=== PATIENT | female | born 1985 | race Caucasian/White ===

== ENCOUNTER 2023-12-31 19:28 | Inpatient (IN) | payer BC, SELFPAY ==
--- NOTE | 2023-12-31 18:59 | HP.PCM.OB_ITS ---
HPI - General General Date of Admission: 12/31/23 Date of Service: 12/31/23 HPI Narrative GAVI JUNIOR, is a 38 F who presents for induction. Maternal Data Information Final SONG: 01/07/24 Gestational age: 39 weeks [facility] Surgical History (Updated 12/31/23 @ 19:[address] Ganesh Cannon MD) H/O wrist surgery Physical Exam Const alert and oriented x3 Chest inspection of chest normal Resp normal respiratory effort GI soft to palpation, non-tender and non-distended Inspection: gravid external exam normal Narrative: cvx - cl/th/-3, posterior Extremity no calf tenderness Neuro moves all extremities Labs Labs Labs: No Data to Display Assessment & Plan (1) Group beta Strep positive: (2) Gestational diabetes requiring insulin: (3) 39 weeks gestation of : PLAN: Plan Admit to L&D Induction - start cytotec GBS positive - pcn per protcol in active labor GDMA2 - monitor BS per protocol Pain - epidural as desired EFW - less than 4500g, patient with adequate pelvis
[2023-12-31 19:15] VITALS: BP 128/78; PULSE 71; RESP 16; TEMP 36.7
[2023-12-31 19:20] VITALS: BMI 32.8
[2023-12-31 20:07] LABS: Bedside Glucose 63 mg/dL (74-106)
[2023-12-31 20:17] LABS: Absolute Lymphocyte Count 2.22 X10^3/uL (0.83-4.51); Absolute Neutrophil Count 5.1 X10^3/uL (2.0-7.7); Basophil# 0.02 X10^3/uL; Basophil% 0.3 % (0-1); Eosinophil# 0.04 X10^3/uL; Eosinophils% 0.5 % (0-5); Hematocrit 32.9 % (37-47); Hemoglobin 11.2 g/dL (12.0-15.0); Lymphocyte # 2.22 X10^3/ul (0.83-4.51); Lymphocyte % 28.2 % (19-41); Mean Corpuscular Hgb 31.1 pg (27.0-32.0); Mean Corpuscular Volume 91.4 fL (81-99); Mean Platelet Vol. 11.9 fl (6.2-12.0); Monocyte# 0.45 X10^3/uL; Monocyte% 5.7 % (0-10); NRBC Flagged by Analyzer 0 % (0-5); Neutrophil # 5.12 X10^3/uL (2.7-7.7); Neutrophil % 64.9 % (47-70); Platelet Count 148 K/mm3 (150-450); RBC Distribution Width CV 12.1 % (11.6-14.6); RBC Distribution Width SD 40.4 fl (35.1-43.9); White Blood Count 7.9 K/mm3 (4.4-11.0)
[2023-12-31] MEDS: miSOPROStol 25 MCG TABLET VAGINAL (20:27)
[2023-12-31 20:55] VITALS: BP 121/74; PULSE 73; RESP 16; O2SAT 95; O2SAT 97
[2023-12-31 21:07] LABS: Syphilis Antibodies Non-reactive
[2023-12-31 21:23] LABS: Bedside Glucose 119 mg/dL (74-106)
[2023-12-31] MEDS: Lactated Ringers 1,000 ML 100 ML IV (22:04)
[2023-12-31 22:31] LABS: Bedside Glucose 102 mg/dL (74-106)
[2023-12-31 23:24] LABS: Bedside Glucose 80 mg/dL (74-106)
[2023-12-31] MEDS: LACTATED RINGERS 500 ML 999 ML IV (23:56)
[2024-01-01] VITALS (51 sets, daily range): BP systolic 96–126; BP diastolic 54–91; PULSE 56–79; RESP 14–16; TEMP 35.8–36.9; O2SAT 92–100
[2024-01-01] MEDS: LACTATED RINGERS 500 ML 999 ML IV ×3 (01:08→03:10)
[2024-01-01] MEDS: Sodium Citrate/Citric Acid 30 ML UDC PO (04:39)
[2024-01-01] MEDS: Acetaminophen 500 MG Tablet PO (04:39)
[2024-01-01] MEDS: Lactated Ringers 1,000 ML 200 ML IV (04:40)
[2024-01-01] MEDS: Cefazolin 2 GM in 0.9% Normal Saline (100mL Bag) 100 ML IV (04:50)
[2024-01-01] MEDS: Oxytocin 15 Units/NS 250ml 15 UNITS/250 ML IV.SOLN 83 UNITS IV (06:00)
[2024-01-01 06:10] LABS: Bedside Glucose 86 mg/dL (74-106)
[2024-01-01 06:29] LABS: Bedside Glucose 88 mg/dL (74-106)
[2024-01-01] MEDS: Ketorolac 30 MG/ML Syringe IV ×3 (06:30→19:43)
[2024-01-01] MEDS: Ondansetron 4 MG/2 ML Vial IV (06:40)
--- NOTE | 2024-01-01 08:18 | OP.PCM_ITS ---
Maternal Data Information Final SONG: 01/07/24 Gestational age: 39&1 Details Operative Information Date of Procedure: 01/01/24 Pre-Operative Diagnosis: (1) Non reassuring heart tracing Post-Operative Diagnosis: Same Indications for : Distress Indications Narrative: The patient was admitted for induction with a cl/thi/hi cervix. She received 1 dose of vaginal cytotec. She had a persistent category 2 tracing and pitocin was unable to be started. Patient had late & variable decelerations that became recurrent despite all interventions. Patient was counseled on R/B/A of proceeding with a . Shared decision making occurred and decision made to proceed with a . The patient was taken to the operating room where epidural anesthesia was dosed & found to be adequate. She was prepped and draped in the dorsal supine position with a leftward tilt. A Pfannenstiel skin incision was made approximately 2 cm above the symphysis pubis and carried through to the underlying fascia with the scalpel. The fascia was incised incised in the midline and extended laterally with the Altamirano scissors. The rectus muscles were in the midline and the peritoneum was entered carefully and bluntly. The peritoneal incision was stretched and the bladder blade was inserted. Vesicouterine peritoneum was tented up, incised & then bladder flap created gently. The uterine incision was made in a low transverse fashion with the scalpel and extended superiorly and inferiorly with blunt dissection. The 's head was brought to the incision in the flexed position and delivered without difficulty. The head was gently guided to allow delivery of the anterior and posterior shoulders. The body then delivered with fundal pressure in the standard fashion. The 3VC cord was clamped and cut in delayed fashion. The was handed off to the waiting pediatric physician assistant. The placenta was delivered with fundal massage and gentle traction in the standard fashion. The uterus was exteriorized and cleared of clots and debris. The uterine incision was closed with #1 Vicryl suture in a running locked fashion. Monocryl suture was used in an imbricating fashion. The incision was examined and was found to be hemostatic. The uterus was returned to the abdominal cavity. After irrigating Magdaleno was placed over the uterine incision as some areas were denuded (but hemostatic). The rectus muscle was examined and any bleeding was Bovie cauterized. The fascia was closed with PDS suture in a running standard fashion. The subcutaneous tissue was examining and any bleeding was Bovie cauterized. The subcutaneous tissue was reapproximated with interrupted suture s. The skin was closed in a subcuticular fashion by the SULFURIC ACID PLANT OPERATOR while I was present in the OR. The remainder of the procedure was performed by me with assistance. All sponge, lap, and needle counts were correct. The patient was taken to her room for recovery in a stable condition. Classification: DEBBY Procedure Type: low transverse household appliance repairer #1: Christiano Gregorio Type of Anesthesia: Epidural and Spinal Antibiotic Given: Ancef 2 grams IV x1 Drain: Trinidad to straight drain Estimated Blood Loss: 600ml Fluids Replaced: 1000ml Procedure Start Time: 05:06 Procedure Stop Time: 05:46 Findings Description of Procedure: Normal maternal uterus and adnexa Presentation: Positive for Vertex Amniotic Membrane Rupture Type: Artificial Amniotic Fluid Description: Clear Placental Delivery Description: Expressed Placenta Disposition: [facility] Cord Vessel Description: 3 Vessels Cord Entanglement: None A Gender: Ambiguous (Rosmery, weight = 6 lbs) (1 minute): 7 (5 minute): 9 Delayed Cord Clamping: Yes Complications Complications: none
[2024-01-01] MEDS: proCHLORPERazine 10 MG/2 ML Vial IV (09:03)
[2024-01-01] MEDS: Lactated Ringers 1,000 ML 100 ML IV (09:05)
[2024-01-01] MEDS: Enoxaparin 40 MG/0.4 ML Syringe SC (10:05)
[2024-01-01] MEDS: Senna/Docusate Sodium 1 Tablet PO (10:05)
[2024-01-01] MEDS: Acetaminophen 500 MG Tablet 1000 MG PO ×2 (12:09→18:26)
--- NOTE | 2024-01-01 15:26 | NURSING ---
reviewed and agree with student nurse charting that is used for learning and educational purposes
[2024-01-01] MEDS: 0.9% Saline Lock 10 ML Syringe IV (19:43)
[2024-01-02] VITALS (7 sets, daily range): BP systolic 103–124; BP diastolic 70–88; PULSE 63–82; RESP 16; TEMP 36.2–37; O2SAT 97–98
[2024-01-02] MEDS: Acetaminophen 500 MG Tablet 1000 MG PO ×4 (00:29→18:29)
[2024-01-02] MEDS: Ibuprofen 600 MG Tablet PO ×4 (02:25→20:00)
[2024-01-02 06:19] LABS: Bedside Glucose 79 mg/dL (74-106)
[2024-01-02 06:21] LABS: Hematocrit 29.2 % (37-47); Hemoglobin 9.5 g/dL (12.0-15.0); Mean Corp Hgb Conc 32.5 g/dL (32-36); Mean Corpuscular Hgb 30.5 pg (27.0-32.0); Mean Corpuscular Volume 93.9 fL (81-99); Mean Platelet Vol. 11.8 fl (6.2-12.0); Platelet Count 107 K/mm3 (150-450); RBC Distribution Width CV 12.5 % (11.6-14.6); Red Blood Count 3.11 M/mm3 (4.2-5.4)
--- NOTE | 2024-01-02 08:54 | PCM.PN.OB ---
Subjective Subjective Doing well. Pain controlled. Ambulating and voiding without difficulty. Breast feeding. Objective Data Objective Data Vital Signs: Vital Signs Temp Pulse Resp BP Pulse Ox O2 Del Method 97.6 F L 82 16 103/70 98 Room Air 01/02/24 08:29 01/02/24 08:29 01/02/24 08:29 01/02/24 08:29 01/02/24 03:50 01/02/24 03:50 Oxygen Delivery Method Room Air Weight: 86.908 kg Body Mass Index (BMI) 32.8 Intake & Output: Intake and Output for Last 24 Hours 12/31/23 01/01/24 01/02/24 23:59 23:59 23:59 Intake Total 4826 / 4826 Output Total 2350 / 2350 Balance 2476 / 2476 Lab / Micro Data 01/02/24 05:55 Labs: Laboratory Results - last 24 hr 01/02/24 05:51: POC Glucose 79 01/02/24 05:55: WBC 9.0, RBC 3.11 L, Hgb 9.5 L, Hct 29.2 L, MCV 93.9, MCH 30.5, MCHC 32.5, RDW Std Deviation 43.0, RDW Coeff of Reza 12.5, Plt Count 107 L, MPV 11.8 ROS Constitutional Constitutional: Denies fatigue, fever(s) or malaise Eyes Eyes: Denies change in vision ENT HEENT: Denies dizziness or headache(s) Cardiovascular Cardiovascular: Denies chest pain, dyspnea or lightheadedness Respiratory/Chest Respiratory/Chest: Denies cough or dyspnea Gastrointestinal Gastrointestinal: Denies change in bowel habits Genitourinary Genitourinary: Denies burning urination or genital lesions Integumentary Integumentary: Denies rash Neurologic Neurologic: Denies confusion, dizziness, headache(s), numbness or weakness Physical Exam Const alert and oriented x3 General Appearance: cooperative Chest inspection of chest normal Resp normal respiratory effort GI soft to palpation, non-tender and non-distended GI Narrative: soft, moderate distention, fundus firm, appropriately tender. Abdominal bandage clean dry and intact Inspection: gravid external exam normal Narrative: cvx - cl/th/-3, posterior Extremity no calf tenderness Neuro moves all extremities Assessment & Plan (1) S/P : (2) 39 weeks gestation of : PLAN: Plan Expected discharge tomorrow.
[2024-01-02] MEDS: Senna/Docusate Sodium 1 Tablet PO (10:41)
[2024-01-02] MEDS: Enoxaparin 40 MG/0.4 ML Syringe SC (10:42)
[2024-01-02] MEDS: oxyCODONE 5 MG Tablet PO ×2 (12:23→17:23)
[2024-01-03] MEDS: Acetaminophen 500 MG Tablet 1000 MG PO ×2 (00:35→06:24)
[2024-01-03] MEDS: Ibuprofen 600 MG Tablet PO ×2 (02:29→08:25)
[2024-01-03 02:40] VITALS: BP 111/75; PULSE 62; RESP 16; TEMP 36.5; O2SAT 96
[2024-01-03] MEDS: oxyCODONE 5 MG Tablet PO (06:26)
--- NOTE | 2024-01-03 06:45 | PCM.PN.OB ---
Subjective Subjective Doing well. Pain controlled. Ambulating and voiding without difficulty. Breast feeding. Objective Data Objective Data Vital Signs: Vital Signs Temp Pulse Resp BP Pulse Ox O2 Del Method 97.7 F L 62 16 111/75 96 Room Air 01/03/24 02:40 01/03/24 02:40 01/03/24 02:40 01/03/24 02:40 01/03/24 02:40 01/03/24 02:40 Oxygen Delivery Method Room Air Weight: 86.908 kg Body Mass Index (BMI) 32.8 Intake & Output: Intake and Output for Last 24 Hours 01/01/24 01/02/24 01/03/24 23:59 23:59 23:59 Intake Total 4826 / 4826 Output Total 2350 / 2350 Balance 2476 / 2476 Lab / Micro Data 01/02/24 05:55 ROS Constitutional Constitutional: Denies fatigue, fever(s) or malaise Eyes Eyes: Denies change in vision ENT HEENT: Denies dizziness or headache(s) Cardiovascular Cardiovascular: Denies chest pain, dyspnea or lightheadedness Respiratory/Chest Respiratory/Chest: Denies cough or dyspnea Gastrointestinal Gastrointestinal: Denies change in bowel habits Genitourinary Genitourinary: Denies burning urination or genital lesions Integumentary Integumentary: Denies rash Neurologic Neurologic: Denies confusion, dizziness, headache(s), numbness or weakness Physical Exam Const alert General Appearance: cooperative GI GI Narrative: soft, moderate distention, fundus firm, appropriately tender. Abdominal bandage clean dry and intact Assessment & Plan (1) S/P : (2) 39 weeks gestation of : PLAN: Plan Discharge home. Prescriptions already sent
--- NOTE | 2024-01-03 06:46 | PCM.DC.SUM ---
Providers Date of Admission: 12/31/23 Date of Discharge: 01/03/24 Primary Care Physician: Dr. Al Felipe MD Reason For Visit: PRIMARY C SECTION Diagnosis Discharge Diagnosis (1) S/P : Status: Acute Code(s): Z98.891 - History of uterine scar from previous surgery (2) 39 weeks gestation of : Status: Acute Code(s): Z3A.39 - 39 weeks gestation of Plan Expected discharge tomorrow. Medications at Discharge Home Medications vit no.95-ferrous fumarate 28 mg-folic acid 800 mcg tablet () 1 tab PO DAILY supplement 12/31/23 ibuprofen 600 mg tablet 600 mg PO Q6H #30 tabs 01/03/24 Hospital Course Operations section Procedures None Summary of Care Provided Minutes Spent on Discharge: 22 Hospital Course: Admitted for induction of labor but had persistent cat 2 after only one dose of cytotec. Proceeded with primary c/s. Uncomplicated delivery and . Breast feeding Physical Exam Const alert General Appearance: cooperative GI GI Narrative: soft, moderate distention, fundus firm, appropriately tender. Abdominal bandage clean dry and intact Weight / BMI Weight Weight: 86.908 kg Body Mass Index (BMI) 32.8 ABG / Lab / Microbiology Data 01/02/24 05:55 D/C Instructions Discharge Diet: No restrictions May resume sexual activity in: 4-6 weeks Lifting Restrictions: 20 pounds Additional Activity Instructions: Nothing in the vagina for 4-6 weeks. You may return to work/school in 6 weeks. Call your doctor if your incision/area has: Continuous Slow Oozing, Sudden Increased Bleeding, Increased Pain/ Swelling, Increased Redness and Foul Smelling Discharge Call your doctor if you observe: Fever of 101 or Higher and Using more than 1 pad per hour (for 2 hours) Suture Line Care: Avoid Pulling/Pushing and Avoid Pinching/Bending Cleanse incision/area with: Keep Dressing Clean & Dry Please Follow Up With: Cindy Israel MD When: Call to make an appointment for an incision check in 1-2 [phone]. You will need a post check in 6 weeks. Meaningful Use Info Meaningful Use Meaningful Use Diagnoses (Choose all that apply): None applicable Ischemic Stroke Statin Dosing Therapy Reference: STATIN DOSE THERAPY REFERENCE: * Patients > 75 years receive moderate or high dose statin therapy. * Patients 75 years or YOUNGER should receive HIGH intensity statin dose unless contraindicated. You will be required to document reason for non-treatment if statin daily dose does not meet guidelines. HIGH DOSE STATIN THERAPY DAILY Atorvastatin > than or = to 40 mg Rosuvastatin > than or = to 20 mg Amlodipine + Atorvastatin > than or = to 2.5/40 mg Ezetimibe + Simvastatin 10/80 mg Simvastatin 80mg Discharge Plan Admission Admit Date/Time: 12/31/23 19:28 Attending Provider: Ganesh Cannon Primary Care Provider: Al Felipe Discharge Orders/Prescriptions Prescriptions: New ibuprofen 600 mg Tablet 600 mg PO Q6H Qty: 30 0RF Continued PNV cmb#95-ferrous fumarate-FA [] 28 mg iron- 800 mcg tablet 1 tab PO DAILY Discontinued aspirin 81 mg capsule 81 mg PO BID Humulin N NPH Insulin KwikPen 100 unit/mL (3 mL) insulin pen 10 unit subcut QHS Referrals / Follow Up: Al Felipe MD [Primary Care Provider] - Disposition Disposition (needs filled in before D/C Order can be placed): Home, Self Care
[2024-01-03 08:30] VITALS: BP 117/75; PULSE 62; RESP 16; TEMP 36.2; O2SAT 99
[2024-01-03] MEDS: Enoxaparin 40 MG/0.4 ML Syringe SC (10:32)
[2024-01-03] MEDS: Senna/Docusate Sodium 1 Tablet PO (10:33)
== END 2024-01-03 11:00 | disposition home or self-care (01) | DRG 788 ==
PROVIDERS: Admitting Provider Obstetrics & Gynecology; PCP Family Medicine; Referring Provider Obstetrics & Gynecology; Visit Provider Obstetrics & Gynecology
DX: O24.424 Gestational diabetes mellitus in childbirth, insulin controlled (principal); O76 Abnormality in fetal heart rate and rhythm complicating labor and delivery; Z37.0 Single live birth; O99.824 Streptococcus B carrier state complicating childbirth; Z3A.39 39 weeks gestation of pregnancy
CPT/HCPCS: 59025; 59050; 82962; 85025; 85027; 86780; 86850; 86900; 86901; 99221; J7120; A4216; G0378; J2405

== ENCOUNTER 2024-05-21 10:33 | Day surgery (SDC) | payer BC, SELFPAY ==
--- NOTE | 2024-05-20 15:04 | PCM.HP.BLA ---
History and Physical Date of Admission: 05/21/24 Expand All Collapse All Pre-Op History and Physical HPI: The patient is a 38 year old female presenting for discussion regarding removal of perforated IUD into abdominal cavity. pre-operative visit. She is scheduled for diagnostic laparoscopy removal of perforated iud and nexplanon insertion , for perforated iud and contraceptive mgmt on 05/21/24. Procedure discussed along with risks, benefits and complications. Other alternatives discussed for management. Consent form signed? Yes. PAST MEDICAL HISTORY PAST MEDICAL HISTORY Diagnosis Date ? Family history of breast cancer in mother ? Irregular heart beat 04/08/2013 PAST SURGICAL HISTORY PAST SURGICAL HISTORY Procedure Laterality Date ? DELIVERY ONLY 01/01/2024 [facility] ? INSERTION OF IUD 03/18/2024 Mirena ? PAST SURGICAL HISTORY OF 2010 surgery to correct fx right wrist CURRENT MEDICATIONS Current Outpatient Medications Medication Sig Dispense Refill ? fenugreek seed 610 mg cap Take by mouth. ? Norethindrone, Contraceptive, 0.35 mg tablet Take 1 tablet by mouth once daily. 90 tablet 1 ? levonorgestrel (MIRENA) 21 mcg/24hr (up to 8 yrs) 52 mg IUD 1 Each by INTRAUTERINE route as directed. 1 Each 0 ? 25/iron fum/folic/dha (-1 ORAL) Take 1 tablet by mouth once daily. No current facility-administered medications for this visit. ALLERGIES: Patient has no known allergies. PERSONAL HISTORY: SOCIAL HISTORY Social History Tobacco Use ? Smoking status: Never ? Smokeless tobacco: Never Vaping Use ? Vaping status: Never Used Substance Use Topics ? Alcohol use: Yes Comment: Occasionally ? Drug use: No FAMILY HISTORY: FAMILY HISTORY FAMILY HISTORY Problem Relation Age of Onset ? Allergies Mother Seasonal/environmental ? Breast Cancer Mother 50 ? Thyroid Cancer Mother ? Emphysema Father ? COPD Father ? Heart Father 51 heartattack ? Seizures Sister As a child-none now ? Cancer Maternal Grandfather ? Diabetes Maternal Grandfather REVIEW OF SYMPTOMS: negative except as noted above PHYSICAL EXAMINATION: VITALS: Blood pressure 114/74, weight 77.1 kg (170 lb), last menstrual period 04/02/2023, currently . GENERAL: The patient is well nourished, well hydrated in no acute distress. , The patient is oriented to time, place, and person. NECK: full range of motion LUNGS: Clear to auscultation bilaterally. no wheezes, rhonchi or rales HEART: Regular rate and rhythm, Normal heart sounds, and No murmurs or gallops IMPRESSION: 38yo with perforated iud into abdominal cavity and desires contraception PLAN: diagnostic laparoscopy with removal of IUD and placement of nexplanon (left arm) Pt has been counseled on risks/benefits and alternatives of surgery including but not limited to anesthesia, bleeding, infection, injury to pelvic structures including bowel, bladder, ureters and vessels. Pt wishes to proceed with surgery at this time. Pre and post op instructions reviewed I have reviewed and updated past medical and surgical history, medications and allergies Florina Parrish MD
[2024-05-21] VITALS (8 sets, daily range): BP systolic 107–119; BP diastolic 67–84; PULSE 59–74; RESP 16; TEMP 36.2–36.5; O2SAT 99–100; BMI 29.1
[2024-05-21 11:08] LABS: Internal QC Validated? YES +Cl - CLEAR BKGD; Pregnancy, Urine Negative Negative
[2024-05-21] MEDS: 0.9% Normal Saline (1000mL) 1,000 ML 15 ML IV (11:14)
--- NOTE | 2024-05-21 12:11 | PRE.ANES_ITS ---
ASA Classification* ASA Classification ASA Classification: 1 Assessment & Plan Anesthesia* Anesthesia Assessment Anesthesia Assessment: Discussed sedation and/or anesthesia options, risks, benefits, and alternatives with patient/parents/legal guardian/POA. Questions invited. The patient/parents/legal guardian/POA seems to understand and agrees to proceed with anesthesia plan. Reviewed the physical assessment, medical history, allergy history and patient home medications list prior to surgery/procedure/anesthetic and documented any changes. Performed airway and anesthesia risk assessments. Anesthesia Type Anesthesia Type: General History Source History Obtained from:: Patient and Chart Anesthesia Focused Assessment* Temperature: 97.2 F Pulse Rate: 61 Blood Pressure: 107/72 Respiratory Rate: 16 Pulse Ox: 100 Oxygen Delivery Method: Room Air Airway Assessment Mouth opens: >3 cm Mallampati Score: I Teeth Condition: Intact Neck Range of motion (ROM): Full ROM Focused Labs Anesthesia Preop lab: CBC WBC 9.0 K/mm3 (4.4-11.0) 01/02/24 05:55 01/02/24 RBC 3.11 M/mm3 (4.2-5.4) L 01/02/24 05:55 01/02/24 Hgb 9.5 g/dL (12.0-15.0) L 01/02/24 05:55 01/02/24 Hct 29.2 % (37-47) L 01/02/24 05:55 01/02/24 Plt Count 107 K/mm3 (150-450) L 01/02/24 05:55 01/02/24 CHEMISTRY POC Glucose 79 mg/dL (74-106) 01/02/24 05:51 01/02/24 COAG Urine Test Negative Negative 05/21/24 10:45 05/21/24 Pre-Assessment Diagnosis/Proposed Procedure Planned Operative Procedure(s): DIAGNOSTIC LAPAROSCOPY REMOVAL MALPOSITIONED IUD,PLACEMENT OF NEXPLANON Anesthesia History 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 When Was Last Pacemaker Check QUESTION #4 FULL TEXT: You/Your Family Experience fever (hyperthermia) with Anesthesia Last Oral Intake Last Oral intake: Last Oral Intake NPO since 19:00 05/21/24 11:03 Meds taken in AM with sips of No 05/21/24 11:03 water? Meds patient instructed to take am of surgery PONV PONV - loader operator/ground leader: PONV - loader operator/ground leader Female Yes 05/19/24 11:14 HX of Motion Sickness No 05/19/24 11:14 HX of N/V After Surgery No 05/19/24 11:14 Non-Smoker Yes 05/19/24 11:14 Duration of Surgery greater No 05/19/24 11:14 than 60 minutes Number of Risk Factors 2 05/19/24 11:14 PONV Score Moderate Risk 05/19/24 11:14 Height & Weight Height & Weight: Anesthesia: Height & Weight Height 5 ft 4 in 05/21/24 11:03 Weight: 77 kg 05/21/24 11:03 Body Mass Index (BMI) 29.1 05/21/24 11:03 Respiratory Assessment Respiratory Assessment - loader operator/ground leader: Respiratory Tract Infection Hx - loader operator/ground leader Hx Respiratory Tract Infection No 05/19/24 11:14 STOP Sleep Apnea STOP Sleep Apnea - loader operator/ground leader: STOP Sleep Apnea - loader operator/ground leader Hx Hypertension No 05/19/24 11:14 Hx Sleep Apnea No 05/19/24 11:14 CPAP BIPAP Do you snore loudly (louder No 05/19/24 11:14 than talking or can be heard Do you often feel tired/ No 05/19/24 11:14 fatigued/ sleepy during daytime? Has anyone observed you stop No 05/19/24 11:14 breathing during sleep? STOP Results Negative 05/19/24 11:14 QUESTION #5 FULL TEXT : Do you snore loudly (louder than talking or can be heard through closed doors)? Tobacco Use History Tobacco Use History - loader operator/ground leader: Tobacco Use History - loader operator/ground leader Tobacco Use Smoking Status Never smoker 05/19/24 11:14 Hx Tobacco Use No 05/19/24 11:14 Years Smoking Packs Smoked per Day Smoking Cessation Date was within the last 15 years Hx Smoking Cessation Date Hx Smoking Cessation Counseling Hematologic Medial History Hematologic Hx - loader operator/ground leader: Hematologic Medical Hx - cook enchilada Hx of Blood Transfusion No 05/19/24 11:14 Hx of Transfusion in last 3 No 05/19/24 11:14 Months Date of Last Transfusion (if within last 3 months) Ever experience any problems No 05/19/24 11:14 with transfusion(s)? Specify any problems Hx of Preganancy in last 3 No 05/19/24 11:14 Months Nurse Filling Out Transfusion DSCHRIBER 05/19/24 11:14 & Questions: Date: 05/19/24 05/19/24 11:14 Time: 11:16 05/19/24 11:14 Patient unable to answer at this time (ie. confused, unrespo /Reproduction History /Reproductive History - loader operator/ground leader: /Reproductive Hx- loader operator/ground leader Hx Now No 05/19/24 11:14 Gestational Age (in weeks): EDC: Hx Hx Para Hx Section SAB Yes 05/19/24 11:14 Active Medications Active Medications: Current Medications Generic Name Dose Route Start Last Admin Trade Name Freq PRN Reason Stop Dose Admin Sodium Chloride 1,000 mls @ 15 mls/hr 05/21/24 10:55 05/21/24 11:14 IV 05/27/24 00:14 15 mls/hr .Q48H MARKO Administration Protocol [facility] Medical History Patient is a currently breast-feeding mother Wears contact lenses Anxiety Alcohol use Non-smoker Leg cramps History of irregular heartbeat Gestational diabetes Home Medications ?Medication ?Instructions ?Recorded ?Last Taken ?Type vit no.95-ferrous 1 tab PO DAILY supplement 0 12/31/23 12/31/23 09:00 History fumarate 28 mg-folic acid 800 mcg tablet () fenugreek seed 610 mg capsule 610 mg PO DAILY 05/19/24 Unknown History ibuprofen 600 mg tablet 600 mg PO Q6H PRN pain 05/19 Unknown History Allergy/AdvReac Type Severity Reaction Status Date / Time No Known Allergies Allergy Verified 05/19/24 11:12 Surgical History History of H/O wrist surgery Social History Smoking Status: Never smoker Review of Systems (Anesthesia) ROS Narrative System reviewed and no additional complaints, except as documented.
[2024-05-21] MEDS: Etonogestrel 68 MG IMPLANT SC (13:06)
[2024-05-21] MEDS: Bupivacaine 0.25% 30 ML Vial (13:07)
--- NOTE | 2024-05-21 13:19 | OP.PCM_ITS ---
Operative Report (Standard) Operative Information Date of Procedure: 05/21/24 Pre-Operative Diagnosis: perforated IUD, Desires contraception Post-Operative Diagnosis: same Surgery/Procedure Performed: Diagnostic laparoscopy, removal of perforated IUD, insertion of nexplanon resistance brazer: Yes Shipping And Receiving Weigher: Tammy Estrada Tasks completed by optometry assistant: Opening & closing and Insert Trochanter Additional administrative services assistant?: Yes Additional Credit Review Analyst #2: kayla crow Tasks completed by administrative services assistant #2: Closing and Retracting Type of Anesthesia: General and Local (0.25%marcaine) RN Documented Start/Stop Times: Operation Date: 05/21/24 12:20 Case Time Into Pre-Op 05/21/24 10:52 Out of Pre-Op 05/21/24 12:31 Anesthesia Start 05/21/24 12:33 Into Room 05/21/24 12:33 Procedure Start 05/21/24 12:57 Procedure End 05/21/24 13:17 Procedure Start Time: 12:57 Procedure Stop Time: 13:17 Select all DRAINS/GRAFTS/IMPLANTS that apply: None Estimated Blood Loss: <5 Fluids Replaced: 700 Specimen collected: No Description of surgery: Patient taken the operating room. Placed in supine position. After anesthesia was induced the left arm was cleansed with ChloraPrep. 3 cc of quarter percent Marcaine was injected. Nexplanon was placed without difficulty. Steri-Strips were placed and a pressure dressing was applied. She was prepped and draped normal sterile fashion. Bladder was drained prior to the start of the procedure. Legs were placed in yellowfin stirrups in a neutral position. Arms were tucked at the side. Weighted speculum placed the posterior fornix vagina single-tooth tenaculum used to Grasp anterior of the cervix. Uterus sounded to approximately 7 cm significantly anteflexed. The uterine manipulator was placed. At this time attention was turned to the laparoscopic portion of the case. Legs were placed in parallel with the abdomen. 2 towel clamps were placed on either side of the umbilicus. Marcaine was injected and a small intraumbilical incision was made. Direct placement of the trocar was placed. Once adequate placement was achieved CO2 gas was used to insufflate the intra- abdominal cavity. Upon insufflation the patient was placed in Trendelenburg position. Location of the IUD was noted and the uterine manipulator was noted to be perforated to the posterior aspect of the uterine wall. The uterine manipulator was removed. The uterus was completely adherent to the anterior abdominal wall. At this time a right lower quadrant port was placed. First Marcaine was injected small incision was made and a 5 mm trocar was placed. At this time grasper was used to grasp the Mirena it was removed without difficulty. Area where the Mirena was adherent in the right posterior cul-de-sac had some small amount of oozing at this time Magdaleno was placed. Otherwise hemostasis was appreciated. Monitored the area and great hemostasis was appreciated. No other abnormalities were noted. Both ovaries appeared to be normal. Both tubes appear to be normal. The ports were removed the gas was desufflated. Incision sites were closed using 4-0 Monocryl. Dermabond was placed. Instrument lap and needle count were correct x 2. Vaginal sweep was performed by myself. Surgical Findings: Mirena was noted in the right posterior cul-de-sac. Uterus was adherent to the anterior abdominal wall. Complications Complications: No Admit VTE Documentation VTE Present on Admission: Yes VTE Mechan Device Prophylaxis: SCD's VTE Pharm Prophylaxis ordered?: No Reason prophylaxis not ordered: Treatment Not Indicated
--- NOTE | 2024-05-21 13:26 | PCM.DC ---
Discharge Instructions Diet Discharge Diet: No restrictions DC O2, CPAP, BIPAP needs Home O2 Discharge instructions: No Dressing / Incision May resume sexual activity in: 2 weeks Lifting Restrictions: 20-25 lbs Dressing / Incision Call your doctor if your incision/area has: Continuous Slow Oozing, Sudden Increased Bleeding, Increased Pain/ Swelling, Increased Redness, Foul Smelling Discharge and Swelling at the incision site Call your doctor if you observe: Fever of 101 or Higher, Inability to urinate, Inability to have a bowel movement, Using more than 1 pad per hour and Uncontrolled pain Additional Dressing/Incision Instructions:: You have skin glue over your incision sites, do not pick off. You may shower and let the soap and water run over the incision sites and dab dry. Follow Up Care Please Follow Up With: Florina Buck MD When: 1-2 weeks post OP if you need an appointment please call [phone] Test Results: Test results from this visit will be discussed in further detail at your follow-up appointment, if applicable. Discharge Plan Admission Attending Provider: Florina Buck Primary Care Provider: Al Felipe Instructions Print Language: Upper Sorbian Discharge Orders/Prescriptions Prescriptions: No Action PNV [id number] fumarate-FA [] 28 mg iron- 800 mcg tablet 1 tab PO DAILY fenugreek seed 610 mg capsule 610 mg PO DAILY ibuprofen 600 mg Tablet 600 mg PO Q6H PRN (Reason: pain) Referrals / Follow Up: Al Felipe MD [Primary Care Provider] - Disposition Disposition (needs filled in before D/C Order can be placed): Home, Self Care
--- NOTE | 2024-05-21 13:29 | PCM.POST.ANE ---
Anesthesia: Postop Eval I Current Vital Signs Temperature: 97.4 F Pulse Rate: 74 Blood Pressure: 113/67 Respiratory Rate: 16 Pulse Ox: 100 Oxygen Delivery Method: Room Air Assessment Airway patent: Yes Spontaneous unlabored respirations: Yes Mental status: Awake and Calm nausea: No Vomiting: No Anesthesia Complication: No Fluid Hydration Crystalloid volume administer (ml): 700 Total IV fluid infused: 700 Progress Note Anesthesia document: Postop Eval 1 completed: Yes
--- NOTE | 2024-05-21 18:49 | POSTOPAN2_ITS ---
Anesthesia Postop Eval I Sum Postop Eval Completion status Anesthesia document: Postop Eval 1 completed: Yes Anesthesia Postop Eval I Summary Anesthesia Postop Eval I Summary: Anesthesia Postop Eval I: Assessment Summary Airway patent Yes 05/21/24 13:30 YOUTH SUPPORT WORKER.GDOTT Spontaneous unlabored Yes 05/21/24 13:30 YOUTH SUPPORT WORKER.GDOTT respirations Mental status Awake,Calm 05/21/24 13:30 YOUTH SUPPORT WORKER.GDOTT nausea No 05/21/24 13:30 YOUTH SUPPORT WORKER.GDOTT Vomiting No 05/21/24 13:30 YOUTH SUPPORT WORKER.GDOTT Anesthesia Postop Eval I: Fluid Summary Crystalloid volume administer 700 05/21/24 13:30 YOUTH SUPPORT WORKER.GDOTT (ml) Colloids volume administered ( ml) Blood Product volume administered (ml) Total IV fluid infused 700 05/21/24 13:30 YOUTH SUPPORT WORKER.GDOTT Anesthesia Postop Eval I: Summary Notes Anesthesia Complication No 05/21/24 13:30 YOUTH SUPPORT WORKER.GDOTT Anesthesia Complication Comment: Post-operative progress note Anesthesia: Postop Eval II Evaluation Mental status: Awake and Calm Pain Level: 1 nausea: No Vomiting: No Complications Anesthesia Complication: No
--- NOTE | 2024-05-21 18:49 | PCM.POSTANE2 ---
Anesthesia Postop Eval I Sum Postop Eval Completion status Anesthesia document: Postop Eval 1 completed: Yes Anesthesia Postop Eval I Summary Anesthesia Postop Eval I Summary: Anesthesia Postop Eval I: Assessment Summary Airway patent Yes 05/21/24 13:30 SALESPERSON STERE[employer] EQUIPMENT.[email or web address] Spontaneous unlabored Yes 05/21/24 13:30 SALESPERSON STERE[employer] EQUIPMENT.GDOTT respirations Mental status Awake,Calm 05/21/24 13:30 SALESPERSON STERE[employer] EQUIPMENT.GDOTT nausea No 05/21/24 13:30 SALESPERSON STERE[employer] EQUIPMENT.GDOTT Vomiting No 05/21/24 13:30 SALESPERSON STERE[employer] EQUIPMENT.GDOTT Anesthesia Postop Eval I: Fluid Summary Crystalloid volume administer 700 05/21/24 13:30 SALESPERSON STERE[employer] EQUIPMENT.GDOTT (ml) Colloids volume administered ( ml) Blood Product volume administered (ml) Total IV fluid infused 700 05/21/24 13:30 SALESPERSON STERE[employer] EQUIPMENT.GDOTT Anesthesia Postop Eval I: Summary Notes Anesthesia Complication No 05/21/24 13:30 SALESPERSON STERE[employer] EQUIPMENT.GDOTT Anesthesia Complication Comment: Post-operative progress note Anesthesia: Postop Eval II Evaluation Mental status: Awake and Calm Pain Level: 1 nausea: No Vomiting: No Complications Anesthesia Complication: No
== END 2024-05-21 14:15 | disposition home or self-care (01) ==
LOC: SDC 10:34 → AC 10:35
PROVIDERS: Anesthesiology; PCP Family Medicine; Referring Provider Obstetrics & Gynecology; Visit Provider Obstetrics & Gynecology
PROC: (CPT 49320; principal; 2024-05-21 12:05)
DX: T83.89XA Other specified complication of genitourinary prosthetic devices, implants and grafts, initial encounter (principal); Y76.8 Miscellaneous obstetric and gynecological devices associated with adverse incidents, not elsewhere classified
CPT/HCPCS: 58562; 00952; 81025; J2405